=== PATIENT | male | born 1950 | race Caucasian/White ===

== ENCOUNTER → 2018-08-26 | Outpatient (CLI) | payer OTHER ==
--- NOTE | 2018-08-27 16:45 | CT ---
Procedure: CT LUNG SCREENING Exam Date: 08/26/2018. Ordering Provider: Everardo Vivar Clinical Indication: [employer] . One half pack per day for greater than 20 years. This patient meets eligibility criteria for low-dose CT lung cancer screening. Comparison: CT chest with IV contrast 05/17/2017. Technique: Using a multislice scanner, sequential helical axial imaging was obtained in the thorax, 2.5 mm thickness, 2.5 mm separation, from the level of the thoracic inlet through the lung bases without IV contrast. A low dose protocol was utilized for BMI less than 30: BMI: 15.5. CTDI: 1.76 mGy. 120. kVp. 45 mA. DLP 75.84 mGy-centimeters. 2D sagittal and coronal reconstructed images, 6.0 mm thickness, were obtained. This exam was performed according to our departmental dose optimization program which includes use of automated exposure control, adjustment of the mA and/or kV according to patient size and/or use of iterative reconstruction technique. Nodule measurements under 10 mm are given as mean value of 3 axes diameters. FINDINGS: Lungs and large airways: In the medial left upper lobe, a large lobulated mass is present abutting the left mediastinum and the medial left apex. On soft tissue windows, there appears to be invasion of both the mediastinum and pleura and the anterior left apical pleura. Evaluation limited due to lack of IV contrast. Largest dimensions of this mass in the transverse plane are 7.0 x 5.8 cm. Approximately 5.5 cm craniocaudal. Transverse dimension of the mass on the prior study was 3.8 x 3.3 cm. Inferior aspect of the mass is abutting the superior left hilum and the mediastinum abutting the aortic arch. Multiple bilateral emphysematous blebs and bulla larger and more numerous in the upper lung kulkarni compared to the lower lung kulkarni. This reflects a centrilobular distribution. In the lateral left apex multiple blebs with thickened septa have developed since the prior study with stable posterior pleural thickening. Lateral right apical pleural thickening with large bulla is again seen. 3 mm subpleural nodule in the left lower lobe is stable. No other abnormal nodules or masses bilaterally. Pleura and space: Abnormalities of the pleura in the bilateral upper lobes and apices as previously described. No pneumothorax or pleural effusion. Mediastinum and endy: evaluation limited by low dose technique and lack of IV contrast. As previously described, it is interpreted that the superior left mediastinum from the apex to the aortic arch may be invaded by the left upper lobe mass. A enlarged superior left hilar nodes are suspected. Heart and great vessels: No cardiomegaly. Atherosclerotic calcifications in the proximal brachiocephalic vessels and aortic arch Chest wall, lower neck, axillae: Evaluation also limited by same factors as described above. Invasion of the anterior left apical pleura and chest wall is suspected. Heterogeneous thyroid gland. No enlarged axillary nodes. Upper abdomen: Evaluation of the peritoneum is difficult due to patient's small body habitus. Minimal atherosclerotic calcifications in the abdominal aorta. Osseous structures: Evaluation limited by low dose MIP technique. Minimal spondylosis in the thoracic spine. 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 Prior rotator cuff surgery right humeral head. No lytic or blastic lesions. IMPRESSION: 1. Large mass measuring 7 cm in the transverse plane and at least 5 cm in the craniocaudal plane in the medial left upper lobe apex has enlarged compared to the prior routine CT chest study in April 2017. Suspect invasion of the left superior pleura and mediastinum and the left apical anterior pleura and chest wall. Evaluation of the soft tissue extent of this mass is limited due to lack of IV contrast. Severe emphysematous changes bilateral upper and lower lobes. [facility] Best Practice guidelines: Please see below for Lung RADS category and FOLLOW-UP.* *Lung RADS category Category 4x - Suspicious - findings for which additional diagnostic testing and/or tissue sampling is recommended (greater than 15% malignancy probability). Nodules: Category 3 or 4 nodule(s) with additional features or imaging findings that increases the suspicion of malignancy. Follow-up: Please return for a Chest CT with or without contrast, PET/CT and/or tissue sampling depending on the "probability of malignancy and comorbidities." PET/CT may be used when there is an 8mm or greater solid component. Electronically signed by: Filiberto Vaughn MD 08/27/2018 4:42 PM CDT
== END ==
LOC: CT 10:30
PROVIDERS: ATTEND Family Medicine
DX: Z87.891 Personal history of nicotine dependence (principal); R91.8 Other nonspecific abnormal finding of lung field